=== PATIENT | female | born 1960 | race Caucasian/White ===

== ENCOUNTER 2017-01-07 12:46 | Day surgery (SDC) | payer OTHER ==
[~2017-01-07 12:46] MED LIST: IBUPROFEN200 M2 PO; LOTENSIN40 M1 PO; OMEPRAZOLE20 M4 PO; TYLENOL EXTRA500 M1 PO; ULTRAM50 M1 PO; ZOCOR20 M1 PO
[2017-01-07] MEDS ORDERED: PERCOCET 5-3251 EACH PO (19:58)
[2017-01-07] MEDS ORDERED: ULTRAM50 M1 PO (19:59)
[2017-01-07] MEDS ORDERED: MOBIC7.5 M2 PO (20:00)
[2017-04-12] MEDS ORDERED: NEURONTIN600 M1 PO ×2 (13:10→13:11)
== END 2017-01-07 22:00 ==
LOC: SRG 12:46 → SHSB 12:55 → PACU 18:19 → 5EB 19:25
PROC: 0LQ14ZZ Repair Right Shoulder Tendon, Percutaneous Endoscopic Approach (ICD-10-PCS; principal; 2017-01-07)
PROC: 0LS14ZZ Reposition Right Shoulder Tendon, Percutaneous Endoscopic Approach (ICD-10-PCS; 2017-01-07)
PROC: 0RNJ4ZZ Release Right Shoulder Joint, Percutaneous Endoscopic Approach (ICD-10-PCS; 2017-01-07)
PROC: 0MM14ZZ Reattachment of Right Shoulder Bursa and Ligament, Percutaneous Endoscopic Approach (ICD-10-PCS; 2017-01-07)
PROC: 0PB94ZZ Excision of Right Clavicle, Percutaneous Endoscopic Approach (ICD-10-PCS; 2017-01-07)
DX: M75.121 Complete rotator cuff tear or rupture of right shoulder, not specified as traumatic (principal); M75.111 Incomplete rotator cuff tear or rupture of right shoulder, not specified as traumatic; M75.41 Impingement syndrome of right shoulder; M19.011 Primary osteoarthritis, right shoulder; S43.431A Superior glenoid labrum lesion of right shoulder, initial encounter; M75.21 Bicipital tendinitis, right shoulder; I10 Essential (primary) hypertension; E66.01 Morbid (severe) obesity due to excess calories; E78.5 Hyperlipidemia, unspecified; K21.9 Gastro-esophageal reflux disease without esophagitis; Z79.899 Other long term (current) drug therapy; Z87.891 Personal history of nicotine dependence; Z98.890 Other specified postprocedural states
CPT/HCPCS: C1713; J0690; J2250; J2405